=== PATIENT | male | born 1980 | race Caucasian/White ===

== ENCOUNTER 2018-07-19 16:01 | Emergency (ER) | payer OTHER ==
[2018-07-19] MEDS ORDERED: DIPHTH/TETANUS/ACEL. PERTUSSIS IM ONE (16:25)
[2018-07-19] MEDS ORDERED: fentaNYL CITR 100 MCG/2 ML AMP IVP ONE ×2 (16:25→17:45)
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
[2018-07-19] MEDS ORDERED: NS(*) 0.9% 1000 ML BAG 1,000 ML IV ONE (16:30)
[2018-07-19] MEDS ORDERED: IOPAMIDOL 76% 150 ML INFUS BTL 150 ML ONE (16:43)
[2018-07-19 17:16] LABS: PLATELET COUNT, AUTOMATED 248 K/uL (150-450)
--- NOTE | 2018-07-19 17:56 | RADIOLOGY IMAGING REPORT ---
FACILITY: [facility] PATIENT NAME: Rudi Miller : 1980 MR: [id number] V: [id number] EXAM DATE: ORDERING PHYSICIAN: YAMILEX ISAACS TECHNOLOGIST: Location: [facility] Patient: Rudi Miller : 1980 Visit/Account:[id number] Date of Sevice: 07/19/2018 EXAMINATION: CT Head without intravenous contrast CT Cervical spine without intravenous contrast HISTORY: Trauma. TECHNIQUE: Head: Axial images were obtained from the skull base to the vertex without intravenous contrast. Sa gittal and coronal reformatted images are also submitted. Cervical spine: Axial images were obtained from the skull base through the upper thoracic spine with out IV contrast administration. Coronal and sagittal reformatted images were obtained from the axial source data. One of the following dose optimization techniques was utilized in the performance of this exam: Autom ated exposure control; adjustment of the mA and/or kV according to the patient's size; or use of an i terative reconstruction technique. Specific details can be referenced in the facility's radiology C T exam operational policy. COMPARISON: None available. FINDINGS: HEAD: Brain volume: Normal. Ventricles: Negative. Acute ischemic changes: None. Hemorrhage: None. Masses / edema: None. Martinez-white: Negative. White matter: Negative. Vessels: Negative. Extra-axial: Negative. Calvarium / skull base: Right posterior scalp laceration with skin marko. No radiopaque foreign jose dy or skull fracture. Visualized sinuses / orbits: Small polyp or cyst along the anterior wall of the right maxillary sinu s. Mild mucosal thickening in the ethmoid air cells. CERVICAL SPINE: Alignment: Normal. Cranio-cervical junction: Mild degenerative changes. Otherwise negative. Vertebral bodies: Negative. Posterior elements: Negative. Hardware: None. Disc Spaces: Negative. Soft tissues: Negative. Visualized upper chest: Negative. IMPRESSION: 1. Right posterior scalp laceration with skin marko. No radiopaque foreign body or skull fracture. 2. No acute intracranial abnormality. 3. No acute cervical spine fracture. Report Dictated By: Venkata Lozada MD at 07/19/2018 5:39 PM Report E-Signed By: Venkata Lozada MD at 07/19/2018 5:53 PM WSN:[email or web address]
--- NOTE | 2018-07-19 17:56 | RADIOLOGY IMAGING REPORT ---
FACILITY: [facility] PATIENT NAME: Rudi Miller : 1980 MR: [id number] V: [id number] EXAM DATE: ORDERING PHYSICIAN: YAMILEX ISAACS TECHNOLOGIST: Location: [facility] Patient: Rudi Miller : 1980 Visit/Account:[id number] Date of Sevice: 07/19/2018 EXAMINATION: CT Head without intravenous contrast CT Cervical spine without intravenous contrast HISTORY: Trauma. TECHNIQUE: Head: Axial images were obtained from the skull base to the vertex without intravenous contrast. Sa gittal and coronal reformatted images are also submitted. Cervical spine: Axial images were obtained from the skull base through the upper thoracic spine with out IV contrast administration. Coronal and sagittal reformatted images were obtained from the axial source data. One of the following dose optimization techniques was utilized in the performance of this exam: Autom ated exposure control; adjustment of the mA and/or kV according to the patient's size; or use of an i terative reconstruction technique. Specific details can be referenced in the facility's radiology C T exam operational policy. COMPARISON: None available. FINDINGS: HEAD: Brain volume: Normal. Ventricles: Negative. Acute ischemic changes: None. Hemorrhage: None. Masses / edema: None. Martinez-white: Negative. White matter: Negative. Vessels: Negative. Extra-axial: Negative. Calvarium / skull base: Right posterior scalp laceration with skin marko. No radiopaque foreign jose dy or skull fracture. Visualized sinuses / orbits: Small polyp or cyst along the anterior wall of the right maxillary sinu s. Mild mucosal thickening in the ethmoid air cells. CERVICAL SPINE: Alignment: Normal. Cranio-cervical junction: Mild degenerative changes. Otherwise negative. Vertebral bodies: Negative. Posterior elements: Negative. Hardware: None. Disc Spaces: Negative. Soft tissues: Negative. Visualized upper chest: Negative. IMPRESSION: 1. Right posterior scalp laceration with skin marko. No radiopaque foreign body or skull fracture. 2. No acute intracranial abnormality. 3. No acute cervical spine fracture. Report Dictated By: Venkata Lozada MD at 07/19/2018 5:39 PM Report E-Signed By: Venkata Lozada MD at 07/19/2018 5:53 PM WSN:[email or web address]
--- NOTE | 2018-07-19 18:08 | RADIOLOGY IMAGING REPORT ---
FACILITY: [facility] PATIENT NAME: Rudi Miller : 1980 MR: [id number] V: [id number] EXAM DATE: ORDERING PHYSICIAN: YAMILEX ISAACS TECHNOLOGIST: Location: [facility] Patient: Rudi Miller : 1980 Visit/Account:[id number] Date of Sevice: 07/19/2018 EXAMINATION: CT chest with IV contrast CT abdomen with IV contrast CT pelvis with IV contrast HISTORY: Trauma. TECHNIQUE: Spiral scan was obtained through the chest, abdomen and pelvis during injection of nonio shaji iodinated intravenous contrast. Sagittal and coronal reformatted images are also submitted. One of the following dose optimization techniques was utilized in the performance of this exam: Autom ated exposure control; adjustment of the mA and/or kV according to the patient's size; or use of an i terative reconstruction technique. Specific details can be referenced in the facility's radiology C T exam operational policy. CONTRAST: 90 mL of IV [id number] COMPARISON: None available. FINDINGS: CT THORAX: Lower neck: Negative. Lungs / pleura: Negative. Mediastinum / chasidy: Negative. Heart / pericardium: Negative. Vessels: Negative. Lymph nodes: Negative. Musculoskeletal / Body wall: Acute fracture of the mid to distal right clavicle with one shaft width of displacement. Acute mildly displaced fracture of the right scapula at the base of the coracoid pr ocess. CT ABDOMEN AND PELVIS: Liver / biliary: Negative. Pancreas: Negative. Spleen: Negative. Adrenal glands: Negative. Kidneys: Negative. Pelvic structures: Negative. Bowel: Normal appendix. Otherwise negative. Peritoneum / retroperitoneum / mesenteries: Negative. Vessels: Negative. Lymph nodes: Negative. Musculoskeletal / Body wall: Negative. IMPRESSION: 1. Acute fracture of the mid to distal right clavicle with one shaft width of displacement. 2. Acute mildly displaced fracture of the right scapula at the base of the coracoid process. 3. Otherwise no acute abnormality in the chest, abdomen, or pelvis. Report Dictated By: Venkata Lozada MD at 07/19/2018 5:53 PM Report E-Signed By: Venkata Lozada MD at 07/19/2018 6:05 PM WSN:[email or web address]
[2018-07-19] MEDS ORDERED: TRAM-420 PO (18:10)
[2018-07-19] MEDS ORDERED: CEPH500C24 PO (18:10)
[2018-07-19] MEDS ORDERED: ONDA4TAB9 PO (18:10)
[2018-07-19 18:15] VITALS: BP 145/93
--- NOTE | 2018-07-19 18:26 | EKG ---
FACILITY: [facility] PATIENT NAME: FLAQUITO GUZMAN : [id number] MR: [id number] V: [id number] EXAM DATE: ORDERING PHYSICIAN: YAMILEX ISAACS TECHNOLOGIST: Test Reason : TRAUMA BED 5 Blood Pressure : / mmHG Vent. Rate : 081 BPM Atrial Rate : 081 BPM P-R Int : 164 ms QRS Dur : 088 ms QT Int : 398 ms P-R-T Axes : 028 -20 002 degrees QTc Int : 462 ms Sinus rhythm Left axis deviation Decreased R wave progression anteriorly Slight ST elevation I, AVL, V2-3 Artifact in several leads - repeat if needed No previous ECGs available Confirmed by ALIREZA WALLACE ([id number]) on 07/20/2018 5:31:01 AM Referred By: Confirmed By:ALIREZA WALLACE
[2018-07-19] MEDS ORDERED: ONDANSETRON 4 MG TAB ONE (19:15)
[2018-07-19] MEDS ORDERED: ONDANSETRON 4 MG ODT TABDP SL ONE (19:16)
== END 2018-07-19 18:55 | disposition home or self-care (01) ==
LOC: ER 16:31
DX: S01.01XA Laceration without foreign body of scalp, initial encounter (principal); S42.031A Displaced fracture of lateral end of right clavicle, initial encounter for closed fracture; S42.131A Displaced fracture of coracoid process, right shoulder, initial encounter for closed fracture; J33.8 Other polyp of sinus; M95.8 Other specified acquired deformities of musculoskeletal system
CPT/HCPCS: 12004; 70450; 71260; 72125; 74177; 80320; 82150; 83605; 83690; 85025; 85610; 85730; 90471; 90715; 93005; 96361; 96374; 96376; 99284; J3010; J7030; Q9967; S0119; 82040; 82247; 82310; 82374; 82435; 82565; 82947; 84075; 84132; 84155; 84295; 84450; 84460; 84520